=== PATIENT | female | born 1960 | race Caucasian/White ===

== ENCOUNTER 2016-10-30 05:54 | Day surgery (SDC) | payer BC ==
[~2016-10-30] VITALS: Ht 162.6 cm; Wt 64.3 kg
[~2016-10-30 05:54] MED LIST: DIPH25CA84 PO; LEVO50TA11 PO; METF500T4 PO; OMEP-122 PO; P-EP-93 PO; TELM40TA2 PO
[2016-10-30 06:06] VITALS: BP 162/94; PULSE 89; RESP 16; TEMP 97.8; O2SAT 97
[2016-10-30 06:07] VITALS: Ht 162.6 cm; Wt 64.3 kg
[2016-10-30] MEDS ORDERED: PROPOFOL 500mg 50 ML IV ONE (06:55)
[2016-10-30] MEDS ORDERED: LIDOCAINE 1% (10mg/ml) 2ml SDV INJ ONE (07:00)
[2016-10-30] MEDS ORDERED: LR 1,000 ML IV SCH (07:00)
--- NOTE | 2016-10-30 07:11 | ANESPREOP ---
Anesthesia Record Date and Time DATE: 10/30/16 TIME: 07:09 Pre-Op Diagnosis cancer screening Proposed Surgical Procedure COLONOSCOPY NPO since: 2199 Allergies: Coded Allergies: No Known Allergies (Unverified , 10/30/16) Ht/Wt/BMI Height: 5 ' 4.00 " Weight: 64.300 kg BMI: 24.3 kg/m2 Vital Signs Date Time Temp Pulse Resp B/P Pulse Ox O2 Delivery O2 Flow Rate FiO2 10/30/16 06:06 97.8 89 16 162/94 97 Room Air Medications Inpatient Medications Current Medications Medications (Trade) Dose Ordered Sig/Reji Start Time Stop Time Status Last Admin Dose Admin Lactated Ringer's (Lactated Ringers) 1,000 ml @ 30 mls/hr Q24H 10/30/16 07:00 10/30/16 06:21 30 MLS/HR Diphenhydramine HCl (Benadryl) 25 Mg Capsule, 1 CAP PO Q6H PRN for ALLERY SYMPTOMS, (Reported) Last Taken: on 10/29/16 08 Levothyroxine Sodium (Levothyroxine Sodium) 50 Mcg Tablet, 1 TAB PO DAILY, (Reported) Last Taken: on 10/29/16 08 Loratadine/Pseudoephedrine (Claritin-D 12 Hour Tablet) 1 Each Tab.er.12h, 1 TAB PO DAILY, (Reported) Last Taken: on 10/29/16 08 Metformin HCl (Metformin HCl) 500 Mg Tablet, 1 TAB PO DAILY, (Reported) Last Taken: on 10/29/16 08 Omeprazole (Omeprazole) 20 Mg Tablet.dr, 20 MG PO ACB, (Reported) Take 1 tablet, by mouth, one time a day with breakfast. Last Taken: on 10/29/16 08 Telmisartan (Micardis) 40 Mg Tablet, 1 TAB PO DAILY, (Reported) Last Taken: on 10/29/16 0800 Currently on Beta [place]: No Medical/Surgical History Anesthesia PMH: Reports: *Diabetes, *Hypertension, Reflux, Thyroid Disease ( HYPOTHYROIDISM), Denies: *Angina, *MD, Anesthesia Reactions, CHF, Cancer, Deep Vein Thrombosis, Glaucoma, Hepatitis, Hiatal Hernia, Sleep Apnea Smoking Status: Never smoker Has pt. smoked today?: No Use Chewing Tobacco?: No Second Hand Exposure: No Substance Use Type: does not use Alcohol Intake: none Past Surgical History Orthopedic Surgeries: Abdominal Surgeries: Yes - HERNIA REPAIR Genitourinary Surgeries: Cardiac Surgeries: Endocrine Surgeries: Reproductive Surgeries: Yes - TOTAL HYST 2002, C-SECTIONS Neurological Surgeries: Ear Surgeries: Nose Surgeries: Throat Surgeries: Other Surgeries: Yes - COLONOSCOPY 10/30/16 Anesthesia Adverse Reactions: FOUND none Family Hx of Anesthesia Advers: none Hx of Motion Sickness: No Pertinent Findings EKG Rhythm: Sinus Rhythm Physical Exam Respiratory: Lungs clear Cardiovascular: FOUND Regular rate, rhythm, FOUND No murmur Airway Assessment Mallampati Score: II TMD: 3 Fingerbreadths Neck Extension: Good Teeth: Chipped Teeth/Crowns Overall Assessment: No Airway Concerns ASA: 2 Plan Anesthesia Plan: TIVA Discussion Discussed risks/options/alternatives of anesthesia and questions answered. Patient consents. Nursing pain assessment noted. Present: Family Member Attestation Statement Prior to the delivery of any anesthetic medication, I examined the patient, developed the plan, obtained the patient's consent and discussed the risk and benefits of the procedure with the patient/guardian. RADHA CANCHOLA I JOB INTERVIEWER Oct 30, 2016 07:11
[2016-10-30 08:05] VITALS: BP 113/55; PULSE 95; RESP 16; TEMP 97; O2SAT 100
[2016-10-30 08:21] VITALS: BP 117/65; PULSE 86; RESP 16; O2SAT 95
[2016-10-30 08:33] VITALS: BP 134/89; PULSE 90; RESP 18; O2SAT 96
--- NOTE | 2016-10-30 08:47 | ANESPO ---
Post-Op Note Date 10/30/16 Time: 08:47 Status Pt Participated in Evaluation: Pt participated in person Vital Signs Date Time Temp Pulse Resp B/P Pulse Ox O2 Delivery O2 Flow Rate FiO2 10/30/16 08:33 90 18 134/89 96 Room Air 10/30/16 08:05 97.0 5.00 Respiratory Function: Airway patent, Regular respirations Cardiovascular Function: Regular pulse Mental Status: Alert/oriented Pain Level Intensity: 0 Unable to Assess Pain Due To: Medicated/Sleeping Hydration: Taking po fluids Complications during Recovery None apparent Follow-Up Instructions Instructions Per Surgeon RADHA CANCHOLA CRNA Oct 30, 2016 08:47
--- NOTE | 2016-10-30 10:50 | OPNOTEF ---
DATE OF SERVICE 10/30/2016 SURGEON Migue Raya MD PREOPERATIVE DIAGNOSIS Colorectal cancer surveillance. POSTOPERATIVE DIAGNOSIS Colorectal cancer surveillance, colonic polyp x1 at 50 cm from the anal verge. PROCEDURES Colonoscopy with polypectomy via cold biopsy technique. ANESTHESIA TIVA BRIEF HISTORY/INDICATIONS Mrs. Bonilla is a 56-year-old female who presents today to [facility] to undergo a colonoscopy to serve as a portion of her overall colorectal cancer surveillance. For completeness please refer to notes included in the patient's chart. FINDINGS Upon colonoscopy there was no evidence for angiodysplastic lesions, diverticula or cris malignancies. The patient was found have a single polyp at 50 cm from the anal verge that was on the order of about 6-7 mm in diameter and removed in its entirety via cold biopsy technique. DESCRIPTION OF PROCEDURE After informed consent was obtained, the patient was brought to the endoscopy suite and placed on the table in left lateral decubitus position. The patient subsequently underwent total intravenous anesthesia by the nurse zumba instructor per my request. A formal time-out was then completed. Next, a digital rectal examination was performed. Normal sphincter tone. No rectal masses were appreciated. An Olympus colonoscope was inserted in the anus and advanced through the lumen of the colon under direct visualization at all times until the cecum was ascertained. Triangulation of the teniae coli and the ileocecal valve were identified. There was still a fair amount of stool present within the cecum and proximal ascending colon which did limit visualization to some extent. Otherwise, the bowel prep was adequate. Scope was then slowly withdrawn, again while maintaining visualization of the lumen at all times. The entire colon was without evidence for angiodysplastic lesions, diverticula or cris malignancies. As the colonoscope was being slowly withdrawn, a single polyp was identified at 50 cm as discussed above. This polyp was grasped and removed in its entirety via cold biopsy technique and submitted for pathologic evaluation. Colonoscope was then continued to be withdrawn until it was brought forth back into the rectal vault. A J-maneuver was then performed. No worrisome perianal pathology was noted. Scope was allowed to straighten and withdrawn through the anal verge. The patient tolerated the procedure without difficulty and was sent back to the preop area in stable condition. We will await the biopsy results from today's single polypectomy and will proceed accordingly with further recommendations thereafter. [facility]
== END 2016-10-30 08:53 | disposition home or self-care (01) ==
LOC: NSC 05:54
PROVIDERS: ATTEND Surgery
DX: Z12.11 Encounter for screening for malignant neoplasm of colon (principal); D12.6 Benign neoplasm of colon, unspecified; I10 Essential (primary) hypertension; E11.9 Type 2 diabetes mellitus without complications; K21.9 Gastro-esophageal reflux disease without esophagitis; E03.9 Hypothyroidism, unspecified; Z79.84 Long term (current) use of oral hypoglycemic drugs; Z79.899 Other long term (current) drug therapy
CPT/HCPCS: 45380; 82948; J2704; J7120